=== PATIENT | female | born 1985 | race Caucasian/White ===

== ENCOUNTER 2018-07-31 18:40 | Emergency (ER) | payer OTHER ==
[~2018-07-31] VITALS: Wt 54.4 kg
[~2018-07-31 18:40] MED LIST: TRAMADOL HCL50 MG PO
[2018-07-31] MEDS ORDERED: NAPROSYN500 MG PO (18:45)
== END 2018-07-31 23:50 | disposition home or self-care (01) ==
LOC: ED 18:40
DX: S93.401A Sprain of unspecified ligament of right ankle, initial encounter (principal); M79.671 Pain in right foot; V89.9XXA Person injured in unspecified vehicle accident, initial encounter; Y93.89 Activity, other specified; Y92.89 Other specified places as the place of occurrence of the external cause; Y99.8 Other external cause status

== ENCOUNTER 2018-09-09 14:19 | Emergency (ER) | payer OTHER ==
[~2018-09-09] VITALS: Ht 162.5 cm; Wt 59.0 kg
[~2018-09-09 14:19] MED LIST changes: +NAPROSYN500 MG PO
[2018-09-09 15:02] LABS: BASO % 0.2 % (0.0-1.0); HEMATOCRIT 37.9 % (37.0-47.0); HEMOGLOBIN 12.2 g/dl (12.0-16.0); LYMPH # 2.6 10*3/uL (1.3-4.4); MEAN CELL VOLUME 82.6 fl (81.0-99.0); MEAN CORPUSCULAR HGB 26.6 pg (27.0-31.0); MEAN CORPUSCULAR HGB CONC 32.2 g/dl (33.0-37.0); MEAN PLATELET VOLUME 11.2 fl (9.6-12.3); MONO # 0.8 10*3/uL (0.1-1.0); MONO % 3.8 % (3.0-9.0); NEUT % 83.6 % (47.0-73.0); PLATELET COUNT AUTOMATED 385 10*3/uL (130-400); RED BLOOD COUNT 4.59 10*6/uL (4.10-5.10); RED CELL DISTRI WIDTH 17.1 % (0-14.5); WHITE BLOOD COUNT 21.6 10*3/uL (4.8-10.8)
[2018-09-09 15:18] LABS: ALBUMIN 3.7 gm/dl (3.1-4.5); BUN 18 mg/dl (7-24); CHLORIDE 103 mmol/L (98-107); CREATININE 0.78 mg/dL (0.55-1.02); POTASSIUM 4.4 mmol/L (3.5-5.1); SGOT/AST 22 IU/L (3-35); SGPT/ALT 43 U/L (12-78); SODIUM 135 mmol/L (136-145); TOTAL PROTEIN 8.6 gm/dL (6.4-8.2)
[2018-09-09 15:19] LABS: ALKALINE PHOSPHATASE 144 U/L (45-117)
[2018-09-09 17:30] LABS: BILIRUBIN 2+ (NEGATIVE); BLOOD 1+ (NEGATIVE); CLARITY SL CLOUDY (CLEAR); COLOR YELLOW (YELLOW); GLUCOSE 2+ (NEGATIVE); KETONE 3+ (NEGATIVE); LEUKO ESTERASE NEGATIVE (NEGATIVE); NITRITE NEGATIVE (NEGATIVE); SPECIFIC GRAVITY 1.025 (1.005-1.030); UROBILINOGEN 0.2 E.U./dl (0.2-1.0)
[2018-09-09 17:40] LABS: MUCOUS TRACE; RBC 16-20 rbc/hpf (0-2)
[2018-09-09] MEDS ORDERED: TYLENOL325 M1 PO (18:02)
[2018-09-09] MEDS ORDERED: PENICILLIN-VK500 MG PO (18:02)
== END 2018-09-09 19:00 | disposition home or self-care (01) ==
LOC: ED 14:19
PROVIDERS: Emergency Medicine
DX: O21.0 Mild hyperemesis gravidarum (principal); O99.611 Diseases of the digestive system complicating pregnancy, first trimester; K02.9 Dental caries, unspecified; Z3A.08 8 weeks gestation of pregnancy

== ENCOUNTER 2018-09-19 18:53 | Emergency (ER) | payer OTHER ==
[~2018-09-19] VITALS: Wt 59.0 kg
--- NOTE | ~2018-09-19 | EKG ---
[place], [place] ELECTROCARDIOGRAM REPORT NAME: KAYLI MARQUEZ UNIT #: [id number] ROOM: DOCTOR: [facility] DRAFT REPORT BIRTHDATE: [birth year] [facility] Test Date: 2018-09-19 Test Time: 19:30:14 Pat Name: KAYLI MARQUEZ Department: Room: Gender: F Legal Receptionist: LALITHA : 1985 Requested By: RICHELLE KRUEGER Order Number: [id number] Reading MD: Thuy Alfaro MD Measurements Intervals [place] Rate: 59 P: 38 AK: 163 QRS: 83 QRSD: 102 T: 35 QT: 464 QTc: 460 Interpretive Statements Sinus rhythm RSR' in V1 or V2, probably normal variant Borderline T abnormalities, anterior leads Electronically Signed On 09-20-2018 7:53:42 PST by Thuy Alfaro MD CM:EKGRPT:ELECTROCARDIOGRAM REPORT [id number] RICHELLE [facility] DRAFT REPORT RICHELLE KRUEGER DO
[~2018-09-19 18:53] MED LIST changes: +PENICILLIN-VK500 MG PO; +TYLENOL325 M1 PO
[2018-09-19 19:26] LABS: BASO % 0.2 % (0.0-1.0); EOS # 0.1 10*3/uL (0.0-0.4); EOS % 0.8 % (1.0-4.0); HEMATOCRIT 39.3 % (37.0-47.0); HEMOGLOBIN 12.4 g/dl (12.0-16.0); LYMPH # 2.2 10*3/uL (1.3-4.4); LYMPH % 16.5 % (27.0-41.0); MEAN CELL VOLUME 85.8 fl (81.0-99.0); MEAN CORPUSCULAR HGB 27.1 pg (27.0-31.0); MEAN CORPUSCULAR HGB CONC 31.6 g/dl (33.0-37.0); MONO # 0.9 10*3/uL (0.1-1.0); MONO % 6.6 % (3.0-9.0); NEUT % 75.6 % (47.0-73.0); PLATELET COUNT AUTOMATED 323 10*3/uL (130-400); RED BLOOD COUNT 4.58 10*6/uL (4.10-5.10); RED CELL DISTRI WIDTH 17.3 % (0-14.5); WHITE BLOOD COUNT 13.3 10*3/uL (4.8-10.8)
[2018-09-19 19:37] LABS: ACT PARTIAL THROMBO TIME 21.8 SECONDS (20.8-31.5); INTERNATIONAL NORM RATIO 0.9 (2.0-3.5)
[2018-09-19 19:42] LABS: ALBUMIN 3.8 gm/dl (3.1-4.5); ALKALINE PHOSPHATASE 129 U/L (45-117); BUN 12 mg/dl (7-24); CHLORIDE 102 mmol/L (98-107); CREATININE 0.43 mg/dL (0.55-1.02); POTASSIUM 3.2 mmol/L (3.5-5.1); SGOT/AST 14 IU/L (3-35); SGPT/ALT 34 U/L (12-78); SODIUM 136 mmol/L (136-145); TOTAL PROTEIN 8.7 gm/dL (6.4-8.2)
[2018-09-19 19:45] LABS: TROPONIN I 0.089 ng/ml (<0.045)
[2018-09-19 20:13] LABS: ACETAMINOPHEN (TYLENOL) < 5.0 ug/ml (10-30); ETHYL ALCOHOL < 3.0 mg/dl (<3)
[2018-09-19 20:16] LABS: BILIRUBIN NEGATIVE (NEGATIVE); BLOOD NEGATIVE (NEGATIVE); CLARITY SL CLOUDY (CLEAR); COLOR YELLOW (YELLOW); GLUCOSE 3+ (NEGATIVE); KETONE NEGATIVE (NEGATIVE); LEUKO ESTERASE TRACE (NEGATIVE); NITRITE NEGATIVE (NEGATIVE); PH 5.5 (5.0-9.0); UROBILINOGEN 0.2 E.U./dl (0.2-1.0)
[2018-09-19 20:25] LABS: URINE AMPHETAMINES < 1000 (1000ng/ml); URINE BARBITURATES < 200 (200ng/ml); URINE BENZODIAZEPINES < 200 (200ng/ml); URINE CANNABINOIDS (THC) < 50 (50ng/ml); URINE COCAINE < 300 (300ng/ml); URINE METHADONE < 300 (300ng/ml); URINE OPIATES < 300 (300ng/ml)
[2018-09-19 20:44] LABS: BACTERIA 1+; EPITHELIAL CELLS TNTC
[2018-09-19 20:45] LABS: RBC 0-2 rbc/hpf (0-2)
[2018-09-19 20:47] LABS: URINE PHENCYCLIDINE < 25 (25ng/ml)
[2018-09-19] MEDS ORDERED: NOVOLOG FL100 UNIT/1 SC (20:49)
[2018-09-19] MEDS ORDERED: PENICILLIN VK500 MG PO (20:49)
[2018-09-19] MEDS ORDERED: MAPAP325 MG PO (20:50)
[2018-09-19] MEDS ORDERED: [UNRECOGNIZED DRUG - OTHER] PO (20:50)
== END 2018-09-19 21:13 | disposition left against medical advice (07) ==
LOC: ED 18:53
PROVIDERS: Student in an Organized Health Care Education/Training Program
DX: O24.011 Pre-existing type 1 diabetes mellitus, in pregnancy, first trimester (principal); O26.891 Other specified pregnancy related conditions, first trimester; T68.XXXA Hypothermia, initial encounter; E10.649 Type 1 diabetes mellitus with hypoglycemia without coma; R55 Syncope and collapse; Z3A.10 10 weeks gestation of pregnancy; Z79.4 Long term (current) use of insulin; Z79.2 Long term (current) use of antibiotics; Z79.899 Other long term (current) drug therapy